=== PATIENT | female | born 1950 | race Caucasian/White ===

== ENCOUNTER 2022-04-11 11:29 | Emergency (ER) | payer MEDICARE ==
[~2022-04-11] VITALS: Ht 160 cm; Wt 68.0 kg
--- NOTE | 2022-04-11 11:51 | NUR ---
Left Hip pain after the fall
[2022-04-11] MEDS ORDERED: oxyCODONE/APAP 10/325mg tablet PO ONE (14:25)
[2022-04-11] MEDS ORDERED: HYDR-3973 PO (14:28)
[2022-04-11 14:56] VITALS: BP 115/69
--- NOTE | 2022-04-11 15:12 | NUR ---
IV from left AC removed without complications, Cath intact. Originally placed by EMS. jose DYE
== END 2022-04-11 15:15 | disposition home or self-care (01) ==
LOC: ER 11:30
DX: M25.552 Pain in left hip (principal); G89.29 Other chronic pain; I10 Essential (primary) hypertension
CPT/HCPCS: 71045; 73502; 73700; 99284; 99285